=== PATIENT | female | born 2000 | race Caucasian/White ===

== ENCOUNTER 2023-10-14 05:22 | Emergency (ER) | payer MEDICAID, OTHER ==
[~2023-10-14] VITALS: Ht 172.7 cm; Wt 56.0 kg
[2023-10-14 05:29] VITALS: O2SAT 100
[2023-10-14] MEDS: ACETAMINOPHEN 325MG TABLET PO ONE (05:53)
[2023-10-14] MEDS ORDERED: TOPUD PO (06:52)
[2023-10-14 07:11] VITALS: BP 136/84; PULSE 79; RESP 16; TEMP 37.11408; O2SAT 98
== END 2023-10-14 07:12 | disposition home or self-care (01) ==
LOC: ER 05:22
DX: M54.9 Dorsalgia, unspecified (principal); R51.9 Headache, unspecified; J45.909 Unspecified asthma, uncomplicated
CPT/HCPCS: 72070; 99284